=== PATIENT | male | born 2000 | race Hispanic/Latino ===

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

== ENCOUNTER 2022-03-24 21:28 | Emergency (ER) | payer OTHER | END 2022-03-24 22:37 | disposition home or self-care (01) | LOC: ERS 21:28 | DX: R07.89 Other chest pain (principal) | CPT/HCPCS: 71046; 93005 ==

== ENCOUNTER 2023-04-14 08:49 | Emergency (ER) | payer OTHER ==
[2023-04-14] MEDS ORDERED: Ondansetron PF 4 MG/2 ML Vial ONE (09:14)
== END 2023-04-14 10:07 | disposition home or self-care (01) ==
LOC: ERS 08:49
DX: R07.89 Other chest pain (principal)
CPT/HCPCS: 71045; 93005; 96374; J2405